=== PATIENT | male | born 1995 | race Caucasian/White ===

== ENCOUNTER 2020-07-07 01:10 | Emergency (ER) | payer OTHER ==
[~2020-07-07] VITALS: Ht 175.3 cm; Wt 65.8 kg
[2020-07-07] MEDS ORDERED: CEFUROXIME500 MG PO (04:20)
[2020-07-07] MEDS ORDERED: MORGIDOX100 MG PO (10:56)
[2020-07-07] MEDS ORDERED: TOBRAMYCIN-DEXAM5 ML OP (10:56)
== END 2020-07-07 04:24 | disposition home or self-care (01) ==
LOC: ER 01:10
DX: H01.001 Unspecified blepharitis right upper eyelid (principal); H53.8 Other visual disturbances; H54.61 Unqualified visual loss, right eye, normal vision left eye

== ENCOUNTER 2020-07-07 06:37 | Emergency (ER) | payer OTHER ==
[~2020-07-07] VITALS: Ht 175.3 cm; Wt 65.8 kg
[~2020-07-07 06:37] MED LIST: CEFUROXIME500 MG PO
[2020-07-07] MEDS ORDERED: MORGIDOX100 MG PO (10:56)
[2020-07-07] MEDS ORDERED: TOBRAMYCIN-DEXAM5 ML OP (10:56)
== END 2020-07-07 11:20 | disposition home or self-care (01) ==
LOC: ER 06:37
DX: H01.001 Unspecified blepharitis right upper eyelid (principal); H53.8 Other visual disturbances; H54.61 Unqualified visual loss, right eye, normal vision left eye